=== PATIENT | female | born 1950 | race Caucasian/White ===

== ENCOUNTER 2017-02-09 20:13 | Emergency (ER) | payer MEDICARE, MEDICAID ==
[~2017-02-09] VITALS: Ht 154.9 cm; Wt 54.4 kg
--- NOTE | 2017-02-09 20:15 | NUR ---
TO BED 4 A 66 YO FEMALE PT BIBA#860, PT C/O LEFT SIDED HEAD AND LEFT WRIST PAIN S/P GLF [address] JUDGE, PATIENT DENIES KO. VSS. NAD NOTED. SAFETY AND COMFORT MEASURES RENDERED. MAINTAINED GOOD BODY ALIGNMENT.
--- NOTE | 2017-02-09 20:25 | NUR ---
LADLE POURER AT BEDSIDE TO DRAW BLOOD.
[2017-02-09 20:34] LABS: BASOPHILS # (AUTO) 0.1 /CMM (0.0-0.2); BASOPHILS % (AUTO) 1.2 % (0.0-2.0); EOSINOPHILS # (AUTO) 0.1 /CMM (0.0-0.7); EOSINOPHILS % (AUTO) 1.4 % (0.0-6.0); HEMATOCRIT 36 % (33-45); LYMPHOCYTES # (AUTO) 2.4 /CMM (0.8-4.8); LYMPHOCYTES % (AUTO) 39.7 % (20.0-44.0); MEAN CORPUSCULAR HEMOGLOBIN 30 PG (26.0-33.0); MEAN CORPUSCULAR HGB CONC 33 g/dl (31.0-36.0); MEAN CORPUSCULAR VOLUME 91 fL (82-100); MONOCYTES # (AUTO) 0.4 /CMM (0.1-1.30); MONOCYTES % (AUTO) 6.6 % (2.0-12.0); NEUTROPHILS # (AUTO) 3.1 /CMM (1.8-8.9); NEUTROPHILS % (AUTO) 51.1 % (43.0-81.0); PLATELET COUNT (AUTO) 176 /CMM (150-450); RED BLOOD CELL COUNT(AUTO) 3.98 MIL/uL (4.0-5.2); WHITE BLOOD COUNT (AUTO) 6.1 K/uL (4.3-11.0)
[2017-02-09 20:44] LABS: CALCIUM, SERUM 9.2 mg/dL (8.5-10.1); CARBON DIOXIDE 26 mmol/L (21-32); CHLORIDE 108 mmol/L (98-107); CREATININE 0.9 mg/dL (0.6-1.3); GLUCOSE 101 mg/dL (74-106); SODIUM SERUM 142 mmol/L (136-145); UREA NITROGEN, BLOOD 21 mg/dL (7-18)
[2017-02-09 20:52] LABS: TROPONIN I < 0.017 ng/mL (0.00-0.056)
[2017-02-09 20:53] LABS: INR 0.97 (0.87-1.13); PROTHROMBIN TIME 10.1 SECS (9.5-12.7)
[2017-02-09 21:48] VITALS: BP 152/82
== END 2017-02-09 21:49 | disposition home or self-care (01) ==
LOC: ER 20:16
DX: S52.572A Other intraarticular fracture of lower end of left radius, initial encounter for closed fracture (principal); S52.612A Displaced fracture of left ulna styloid process, initial encounter for closed fracture; S09.8XXA Other specified injuries of head, initial encounter; R79.1 Abnormal coagulation profile; Z88.0 Allergy status to penicillin; Z88.2 Allergy status to sulfonamides; Z88.8 Allergy status to other drugs, medicaments and biological substances; W18.00XA Striking against unspecified object with subsequent fall, initial encounter; Y93.01 Activity, walking, marching and hiking; Y92.89 Other specified places as the place of occurrence of the external cause; Y99.8 Other external cause status
CPT/HCPCS: 29125; 36415; 70450; 71010; 73110; 80048; 84484; 85025; 85730; 93005; 99285; A4606; Z7610

== ENCOUNTER 2017-07-30 11:04 | Emergency (ER) | payer MEDICARE, MEDICAID ==
[~2017-07-30] VITALS: Ht 157.5 cm; Wt 61.2 kg
--- NOTE | 2017-07-30 11:08 | NUR ---
AAOX3, BIBRA RIGHT SHOULDER PAIN S/P GLF, NO OBVIOUS DEFORMITY NOTED, -KO. RR IS EVEN AND UNLABORED WITH NAD NOTED. AWAITING MD FOR EVAL.
[2017-07-30] MEDS ORDERED: ACETAMINOPHEN 325 MG TABLET ONE (12:16)
[2017-07-30] MEDS: ACETAMINOPHEN 325 MG TABLET PO ONE (12:19)
--- NOTE | 2017-07-30 12:30 | NUR ---
Patient is resting comfortably in bed with eyes closed. Easily aroused. VSS
--- NOTE | 2017-07-30 13:20 | NUR ---
CALLED [facility] FOR TRANSPORT ETA OF 1400 WAS GIVEN. TRIP#[id number]
--- NOTE | 2017-07-30 14:08 | NUR ---
Patient discharged to [facility] TO home in stable condition. Written and verbal after care instructions given. Patient verbalizes understanding of instruction.
[2017-07-30 14:09] VITALS: BP 107/58
== END 2017-07-30 14:17 | disposition home or self-care (01) ==
LOC: ER 11:10
DX: S40.011A Contusion of right shoulder, initial encounter (principal); E03.9 Hypothyroidism, unspecified; M25.78 Osteophyte, vertebrae; M48.02 Spinal stenosis, cervical region; Z87.440 Personal history of urinary (tract) infections; Z88.0 Allergy status to penicillin; Z88.2 Allergy status to sulfonamides; Z88.8 Allergy status to other drugs, medicaments and biological substances; W01.0XXA Fall on same level from slipping, tripping and stumbling without subsequent striking against object, initial encounter; Y93.89 Activity, other specified; Y92.002 Bathroom of unspecified non-institutional (private) residence as the place of occurrence of the external cause; Y99.8 Other external cause status
CPT/HCPCS: 70450-TC; 71045-TC; 72125-TC; 73030-TC; A4606; L0172; Z7610